=== PATIENT | male | born 1985 | race Caucasian/White ===

== ENCOUNTER 2022-01-10 15:15 | Emergency (ER) | payer BC ==
[2022-01-10] MEDS ORDERED: Sodium Chloride 0.9% 10 ML Syringe FLUSH PRN (15:16)
[2022-01-10] MEDS ORDERED: Sodium Chloride 0.9% 2.5 ML Syringe FLUSH PRN (15:16)
[2022-01-10] MEDS ORDERED: Aspirin 81 MG Tab.Chew PO ONE (15:16)
[2022-01-10] MEDS ORDERED: Sodium Chloride 0.9% 1,000 ML IV SCH (16:00)
[2022-01-10] MEDS ORDERED: Ketorolac 30 MG/ML SDV IVPUSH ONE (16:03)
[2022-01-10 16:08] LABS: BLOOD UREA NITROGEN,BUN 8 mg/dL (7.0-18.0); CARBON DIOXIDE,CO2 29.3 mmol/L (21.0-32.0); CHLORIDE,CL 104 mmol/L (98-107); GLUCOSE RANDOM 116 mg/dL (74-106); POTASSIUM,K 3.6 mmol/L (3.5-5.1); SODIUM,NA 142 mmol/L (136-148)
[2022-01-10 16:34] LABS: CORONAVIRUS COVID-19 NAA NEGATIVE (NEGATIVE); INFLUENZA A NAA NEGATIVE (NEGATIVE); INFLUENZA B NAA NEGATIVE (NEGATIVE)
[2022-01-10 16:49] VITALS: BP 110/71; PULSE 77
== END 2022-01-10 16:49 | disposition home or self-care (01) ==
LOC: MW.ED 15:15
DX: R07.89 Other chest pain (principal)
CPT/HCPCS: 0240U; 36415; 71045; 80053; 84484; 85025; 85379; 93005; 96374; 99285; A9270; J1885; J3490; J7030